=== PATIENT | male | born 1985 | race Caucasian/White ===

== ENCOUNTER 2016-12-30 11:43 | Emergency (ER) | payer OTHER ==
[~2016-12-30] VITALS: Ht 175.3 cm; Wt 79.4 kg
[~2016-12-30 11:43] MED LIST: KETOROLAC TROME10 M1 PO; PERCOCET 5-3251 EACH PO
[2016-12-30] MEDS ORDERED: PROAIR HFA8.5 GM INH (12:06)
--- NOTE | 2016-12-30 12:07 | ED HEAD/FACIAL INJ COMPLAINT ---
History of Present Illness General Chief Complaint: Facial or Head Injury Stated Complaint: FALL HIT HEAD AT WORK 12/29/16 Source: patient, old records Exam Limitations: no limitations Vital Signs & Intake/Output Vital Signs & Intake/Output Vital Signs Date Time Temp Pulse Resp B/P Pulse O2 O2 Flow FiO2 Ox Delivery Rate 12/30 1208 Room Air Room Air 12/30 1149 98.5 98 18 127/78 97 Room Air Allergies Coded Allergies: No Known Allergies (12/30/16) Reconcile Medications Albuterol Sulfate (Proair Hfa) 90 MCG HFA.AER.AD 2 PUF INH Q4-6 PRN PRN BREATHING (Reported) Baclofen 10 MG TABLET 1 TAB PO TIDPRN PRN muscle spasm/strain Ibuprofen 600 MG TABLET 1 TAB PO Q6PRN PRN pain with food Tramadol HCl (Ultram) 50 MG TABLET 1-2 TAB PO Q6PRN PRN severe pain Triage Note: RECEIVED 31 YO MALE WITH HX OF CONCUSSION 6 MONTHS AGO, C/O PIPE FELL ON FOREHEAD YESTERDAY AT 2 PM, THEN LANDED ON LEFT SHOULDER. PT C/O HEADACHE SINCE 3 AM. PT REPORTS SAME SYMPTOMS WHEN HE HAD A CONCUSSION. PT REPORTS LEFT SHOULDER PAIN AND FOREHEAD PAIN Triage Nurses Notes Reviewed? yes Onset: yesterday Severity: moderate Location: frontal Method of Injury: direct blow Loss of Consciousness: no loss of consciousness Associated Symptoms: headaches, photophobia HPI: 1 day prior to admission patient was struck in the forehead with a pipe at work. He complains of continued headache photophobia. He complains of left shoulder pain and was struck same time. He also has left forearm strain from repetitive work. He denies loss consciousness change in motor sensory function fever chills nausea vomiting diarrhea abdominal pain chest pain shortness breath rash bleeding. Past History Travel History Traveled to [place] past 21 day No Medical History Any Pertinent Medical History? see below for history Neurological: NONE EENT: NONE Cardiovascular: NONE Respiratory: asthma Gastrointestinal: NONE Hepatic: NONE Renal: NONE Musculoskeletal: NONE Psychiatric: NONE Endocrine: NONE Blood Disorders: NONE Cancer(s): NONE Surgical History Surgical History: non-contributory Psychosocial History What is your primary language Greek Tobacco Use: Current Daily Use Daily Tobacco Use Amount/Type: => 5 Cigarettes daily Family History Hx Contributory? No Review of Systems Review of Systems Constitutional: Reports: no symptoms. EENTM: Reports: see HPI. Respiratory: Reports: no symptoms. Cardiovascular: Reports: no symptoms. GI: Reports: no symptoms. Genitourinary: Reports: no symptoms. Musculoskeletal: Reports: see HPI, joint pain, muscle pain. Skin: Reports: no symptoms. Neurological/Psychological: Reports: see HPI, headache. Hematologic/Endocrine: Reports: no symptoms. Immunologic/Allergic: Reports: no symptoms. All Other Systems: Reviewed and Negative Physical Exam Physical Exam General Appearance: well developed/nourished, alert, awake, anxious, mild distress Head: atraumatic, normal appearance Eyes: Bilateral: normal appearance, PERRL, EOMI. Ears, Nose, Throat: normal pharynx, normal ENT inspection, hearing grossly normal Neck: normal inspection, supple, full range of motion, no midline tenderness Respiratory: normal breath sounds, chest non-tender, no respiratory distress, quiet respiration, lungs clear Cardiovascular: regular rate/rhythm, normal peripheral pulses, norml femoral pulses equa Gastrointestinal: normal bowel sounds, soft, non-tender, no organomegaly Back: normal inspection, normal range of motion, no vertebral tenderness Extremities: normal inspection, normal capillary refill, normal range of motion, no edema, tenderness (L brachioradialis) Psychiatric: awake, alert, oriented x 3 Cranial Nerves: normal hearing, normal speech, PERRL Coordination/Gait: normal finger to nose, normal gait Motor/Sensory: no motor/sensory deficits Reflexes: 2+: bicep (R), bicep (L). Skin: intact, normal color, warm/dry Lymphatic: no anterior cervical jamel Progress Differential Diagnosis: ICH, skull fracture Plan of Care: Orders Procedure Date/time Status CT HEAD WO IV CONTRAST 12/30 1203 Active Diagnostic Imaging: Viewed by Me: CT Scan. Discussed w/RAD: CT Scan. Radiology Impression: no acute abnormality, no fracture Departure Departure Time of Disposition: 1338 Disposition: HOME OR SELF CARE Condition: Stable Clinical Impression Primary Impression: Concussion syndrome Secondary Impressions: Contusion of left shoulder Qualifiers: Encounter type: initial encounter Qualified Code: S40.012A - Contusion of left shoulder, initial encounter Musculoskeletal strain Referrals: UNKNOWN (PCP/Family) Departure Forms: Customer Survey Employee Industrial Accident General Discharge Information Prescriptions: Current Visit Scripts Ibuprofen 1 TAB PO Q6PRN PRN pain #50 TAB with food Tramadol HCl (Ultram) 1-2 TAB PO Q6PRN PRN severe pain #30 TAB Baclofen 1 TAB PO TIDPRN PRN muscle spasm/strain #30 TAB
--- NOTE | 2016-12-30 13:26 | CT SCAN REPORT ---
EXAMINATION: CT HEAD WITHOUT CONTRAST CLINICAL INFORMATION: Headache following trauma to head. Photophobia. COMPARISON: 07/08/2016. TECHNIQUE: Contiguous helical images of the brain were obtained without IV contrast. Multiplanar reconstructions were performed. DLP: 601 mGy-cm. FINDINGS: There are no pathologic extra-axial fluid collections. The lateral, third, fourth ventricles are nondilated and concordant with the appearance of the sulci. There is no evidence for acute intraparenchymal hemorrhage or infarct. There is neither mass nor mass effect. There is no shift of midline structures. The paranasal sinuses and mastoid air cells are clear. There are no osseous lesions. IMPRESSION: No evidence for acute intracranial injury.
[2016-12-30] MEDS ORDERED: IBUPROFEN600 M1 PO (13:40)
[2016-12-30] MEDS ORDERED: BACLOFEN10 M1 PO (13:40)
[2016-12-30] MEDS ORDERED: ULTRAM50 M1 PO (13:40)
[2016-12-30 13:51] VITALS: BP 130/77
== END 2016-12-30 13:53 ==
LOC: ERH 11:43
DX: F07.81 Postconcussional syndrome (principal); S40.012A Contusion of left shoulder, initial encounter; W22.8XXA Striking against or struck by other objects, initial encounter

== ENCOUNTER 2017-03-20 19:06 | Emergency (ER) | payer OTHER ==
[~2017-03-20] VITALS: Ht 175.3 cm; Wt 81.6 kg
[~2017-03-20 19:06] MED LIST changes: +BACLOFEN10 M1 PO; +IBUPROFEN600 M1 PO; +PROAIR HFA8.5 GM INH; +ULTRAM50 M1 PO
--- NOTE | 2017-03-20 19:40 | ED HEADACHE COMPLAINT ---
History of Present Illness General Chief Complaint: Headache Stated Complaint: PT IS HAVING BAD MIGRAINE AND LIGHTED Source: patient, old records Exam Limitations: no limitations Vital Signs & Intake/Output Vital Signs & Intake/Output Vital Signs Date Time Temp Pulse Resp B/P B/P Pulse O2 O2 Flow FiO2 Mean Ox Delivery Rate 03/20 2055 98.0 78 104/71 98 03/20 1919 98.6 78 18 106/65 97 Room Air Allergies Coded Allergies: No Known Allergies (12/30/16) Reconcile Medications Albuterol Sulfate (Proair Hfa) 90 MCG HFA.AER.AD 2 PUF INH Q4-6 PRN PRN BREATHING (Reported) Oxycodone HCl/Acetaminophen (Percocet 5-325 MG Tablet) 5 MG-325 MG TABLET 1-2 TAB PO Q6P PRN PAIN Triage Note: PT TO ED C/O HEADACHE OFF AND ON SINCE CUNCUSSION IN DECEMBER. C/P PAIN TO BACK LEFT SIDE OF HEAD AND BEHIND EYES. +NAUSEA AND PHOTOSENSITIVITY. HAS BEEN TAKING MEDS, DOESN'T REMEMBER WHAT IT IS. VSS STARTED" VSS Triage Nurses Notes Reviewed? yes HPI: Patient states that he suffered a concussion back in December while at work. Patient was follow-up with a neurologist through [employer]. and diagnosed with postconcussive syndrome. Patient states he has had a headache since. Patient states that the headache today got worse. The pain is throbbing in nature. The pain is diffuse. There is no aggravating or mitigating factors. He rates the pain as 10 out of 10 today. There are slight nausea but no vomiting. There is no neck pain. Past History Travel History Traveled to [place] past 21 day No Medical History Any Pertinent Medical History? see below for history Neurological: CUNCUSSION EENT: NONE Cardiovascular: NONE Respiratory: asthma Gastrointestinal: NONE Hepatic: NONE Renal: NONE Musculoskeletal: NONE Psychiatric: NONE Endocrine: NONE Blood Disorders: NONE Cancer(s): NONE Surgical History Surgical History: non-contributory Psychosocial History What is your primary language Swazi Tobacco Use: Current Daily Use Daily Tobacco Use Amount/Type: => 5 Cigarettes daily ETOH Use: occasional use Illicit Drug Use: denies illicit drug use Family History Hx Contributory? No Review of Systems Review of Systems Constitutional: Reports: no symptoms. Eyes: Reports: see HPI, photophobia. Ears, Nose, Throat, Mouth: Reports: no symptoms. Respiratory: Reports: no symptoms. Cardiovascular: Reports: no symptoms. Gastrointestinal/Abdominal: Reports: see HPI, nausea. Genitourinary: Reports: no symptoms. Musculoskeletal: Reports: no symptoms. Skin: Reports: no symptoms. Neurological/Psychological: Reports: see HPI, headache. Hematologic/Endocrine: Reports: no symptoms. Endocrine: Reports: no symptoms. Immunologic/Allergic: Reports: no symptoms. All Other Systems: Reviewed and Negative Physical Exam Physical Exam General Appearance: well developed/nourished, alert, awake, anxious, mild distress Head: atraumatic, normal appearance Eyes: Bilateral: PERRL, EOMI. Ears, Nose, Throat: normal pharynx, normal ENT inspection, hearing grossly normal Neck: normal inspection, supple, no midline tenderness Respiratory: normal breath sounds, chest non-tender, no respiratory distress, lungs clear Cardiovascular: regular rate/rhythm, normal peripheral pulses Gastrointestinal: normal bowel sounds, soft, non-tender, no organomegaly Back: normal inspection, normal range of motion Extremities: normal inspection, normal capillary refill, normal range of motion, no edema Psychiatric: awake, alert, oriented x 3 Cranial Nerves: normal hearing, normal speech, PERRL Coordination/Gait: normal gait Motor/Sensory: no motor/sensory deficits Skin: intact, normal color, warm/dry Core Measures Severe Sepsis Present: No Septic Shock Present: No Progress Differential Diagnosis: intracranial Hem., subarach. Hem., tension VIDALES, POST CONCUSSIVE SYNDROME Plan of Care: Orders Procedure Date/time Status COMPREHENSIVE METABOLIC PANEL 03/20 1939 Complete CBC WITHOUT DIFFERENTIAL 03/20 1939 Complete Laboratory Tests 03/20/171945: Anion Gap 8, Estimated GFR > 60, BUN/Creatinine Ratio 16.7, Glucose 103 H, Calcium 8.9, Total Bilirubin 0.4, AST 20, ALT 36, Alkaline Phosphatase 40, Total Protein 6.7, Albumin 4.1, Globulin 2.6, Albumin/Globulin Ratio 1.6, CBC w Diff NO MAN DIFF REQ, RBC 5.02, MCV 88.2, MCH 30.2, RDW 13.6, MPV 8.5, Gran % 63.2, Lymphocytes % 29.4, Monocytes % 5.0, Eosinophils % 1.9, Basophils % 0.5, Absolute Granulocytes 6.2, Absolute Lymphocytes 2.9, Absolute Monocytes 0.5, Absolute Eosinophils 0.2, Absolute Basophils 0, PUBS MCHC 34.3 Diagnostic Imaging: Viewed by Me: CT Scan. Discussed w/RAD: CT Scan. Radiology Impression: PATIENT: NELLY BUTLER PRESENT AGE: 31 PATIENT ACCOUNT NO: [id number] : 85 LOCATION: [facility] ORDERING PHYSICIAN: JACKLYN WALKER MD SERVICE DATE: 03/20/17 EXAM TYPE: CAT - CT HEAD WO IV CONTRAST EXAMINATION: CT HEAD WITHOUT CONTRAST CLINICAL INFORMATION: Headaches. Evaluate for acute intracranial hemorrhage. COMPARISON: CT scan of the head 12/30/2016. TECHNIQUE: Contiguous axial imaging was performed from the skull base to vertex without intravenous administration of contrast. DLP: 600.71 mGy-cm FINDINGS: There is no acute intracranial hemorrhage or abnormal extra-axial collection. No intracranial mass effect or midline shift. Lateral and third ventricles are normal. No hydrocephalus. Marion- white matter differentiation is preserved and there is no evidence of acute territorial infarct. The calvarium and skull base are intact. Mastoid air cells and middle ear cavities are well aerated. Visualized paranasal sinuses are well- aerated. IMPRESSION: Normal CT scan of the head. DICTATED BY: VAL MONTEZ MD DATE/TIME DICTATED:03/20/172030 CASUALTY CLAIM ADJUSTER:ROMAN DATE/TIME TRANSCRIBED:03/20/172030 CONFIDENTIAL, DO NOT COPY WITHOUT APPROPRIATE AUTHORIZATION. <Electronically signed in Other Vendor System> SIGNED BY: VAL MONTEZ MD 03/20/172035 Departure Departure Disposition: HOME OR SELF CARE Condition: Stable Clinical Impression Primary Impression: Post concussive syndrome Referrals: PATIENT HAS NO PRIMARY CARE DR (PCP/Family) Additional Instructions: FOLLOW UP WITH [employer] Departure Forms: Customer Survey General Discharge Information Prescriptions: Current Visit Scripts Oxycodone HCl/Acetaminophen (Percocet 5-325 MG Tablet) 1-2 TAB PO Q6P PRN PAIN #20 TAB
[2017-03-20 20:02] LABS: ABSOLUTE BASOPHIL COUNT 0 /CUMM (0.0-0.2); ABSOLUTE EOSINOPHIL COUNT 0.2 /CUMM (0.0-0.7); ABSOLUTE GRANULOCYTE CT 6.2 /CUMM (1.4-6.5); ABSOLUTE LYMPH COUNT 2.9 /CUMM (1.2-3.4); ABSOLUTE MONOCYTE COUNT 0.5 /CUMM (0.10-0.60); BASOPHIL % 0.5 % (0.0-2.0); EOSINOPHIL % 1.9 % (0-5); GRANULOCYTE % 63.2 % (42.2-75.2); HEMATOCRIT 44.3 % (42-52); MEAN CORPUSCULAR HGB 30.2 PG (27.0-31.0); MEAN CORPUSCULAR HGB CONC 34.3 G/DL (33.0-37.0); MEAN CORPUSCULAR VOLUME 88.2 FL (80.0-94.0); MEAN PLATELET VOLUME 8.5 FL (7.4-10.4); PLATELET COUNT 152 /CUMM (130-400); RBC DISTRIBUTION WIDTH 13.6 % (11.5-14.5); RED BLOOD CELL CT 5.02 /CUMM (4.70-6.10); WHITE BLOOD CELL COUNT 9.8 /CUMM (4.8-10.8)
--- NOTE | 2017-03-20 20:36 | CT SCAN REPORT ---
EXAMINATION: CT HEAD WITHOUT CONTRAST CLINICAL INFORMATION: Headaches. Evaluate for acute intracranial hemorrhage. COMPARISON: CT scan of the head 12/30/2016. TECHNIQUE: Contiguous axial imaging was performed from the skull base to vertex without intravenous administration of contrast. DLP: 600.71 mGy-cm FINDINGS: There is no acute intracranial hemorrhage or abnormal extra-axial collection. No intracranial mass effect or midline shift. Lateral and third ventricles are normal. No hydrocephalus. Marion-white matter differentiation is preserved and there is no evidence of acute territorial infarct. The calvarium and skull base are intact. Mastoid air cells and middle ear cavities are well aerated. Visualized paranasal sinuses are well-aerated. IMPRESSION: Normal CT scan of the head.
[2017-03-20 20:55] VITALS: BP 104/71
[2017-03-20] MEDS ORDERED: PERCOCET 5-3251 EACH PO (20:55)
== END 2017-03-20 21:06 ==
LOC: ERH 19:06
PROVIDERS: Emergency Medicine
DX: F07.81 Postconcussional syndrome (principal)
CPT/HCPCS: 96361; 96374; J1885